=== PATIENT | female | born 1995 | race Caucasian/White ===

== ENCOUNTER → 2017-07-31 | Outpatient (CLI) | payer OTHER ==
--- NOTE | 2017-07-31 11:42 | REP ---
Left clavicle: Two views. History: Contusion. Findings: There is a nondisplaced fracture of the mid shaft of the left clavicle with very slight apex superior angulation. The left acromioclavicular and glenohumeral joints are normally aligned. Periarticular soft tissues are unremarkable. Impression: Mid shaft fracture left clavicle. Signed by Kevin Trejo MD 07/31/2017 12:50 P
== END ==
LOC: M WUC 10:51
PROVIDERS: ATTEND Physician Assistant
DX: S40.012A Contusion of left shoulder, initial encounter (principal); X58.XXXA Exposure to other specified factors, initial encounter; Y92.89 Other specified places as the place of occurrence of the external cause; Y99.9 Unspecified external cause status